=== PATIENT | male | born 2000 | race Caucasian/White ===

== ENCOUNTER 2024-01-15 10:02 | Outpatient (CLI) | payer OTHER ==
[~2024-01-15 10:02] MED LIST: ADVIL200 M1; DESPEC-DM TABL1 EAC1 PO; GILTUSS TR TAB1 EACH PO; OFLOXACIN5 M1 OT; OSEL75CA PO; ZANTAC150 MG PO; ZITHROMAX500 MG PO; ZYRTEC10 MG PO
== END 2024-01-15 10:10 | disposition home or self-care (01) ==
LOC: RAD 10:02
PROVIDERS: ATTEND Surgery
DX: K59.00 Constipation, unspecified (principal)